=== PATIENT | female | born 1975 | race Caucasian/White ===

== ENCOUNTER 2019-03-18 13:34 | Emergency (ER) | payer OTHER ==
[~2019-03-18] VITALS: Ht 167.6 cm; Wt 90.7 kg
== END 2019-03-18 19:24 | disposition home or self-care (01) ==
LOC: ER 13:34
DX: D25.9 Leiomyoma of uterus, unspecified (principal)

== ENCOUNTER 2021-10-08 08:30 | Inpatient (IN) | payer OTHER ==
[~2021-10-08] VITALS: Ht 167.6 cm; Wt 93.0 kg
[2021-10-08] MEDS ORDERED: TOPROL XL50 M1 PO (09:35)
[2021-10-08] MEDS ORDERED: HYDRODIURIL12.5 MG PO (09:35)
[2021-10-08] MEDS ORDERED: BUSPAR PO (09:35)
[2021-10-14] MEDS ORDERED: BUSPIRONE HCL10 MG (10:01)
== END 2021-10-16 10:25 | disposition home or self-care (01) | DRG 743 ==
LOC: OB/GYN 10-14 08:30 → O/R 10-14 08:46 → OB/GYN 10-14 09:45
PROVIDERS: ADMIT Obstetrics & Gynecology; ATTEND Obstetrics & Gynecology
PROC: 0UT70ZZ Resection of Bilateral Fallopian Tubes, Open Approach (ICD-10-PCS; 2021-10-14)
PROC: 0UT20ZZ Resection of Bilateral Ovaries, Open Approach (ICD-10-PCS; 2021-10-14)
PROC: 0DNW0ZZ Release Peritoneum, Open Approach (ICD-10-PCS; 2021-10-14)
PROC: 0UT90ZL Resection of Uterus, Supracervical, Open Approach (ICD-10-PCS; principal; 2021-10-14 09:45)
DX: D25.1 Intramural leiomyoma of uterus (principal); D25.2 Subserosal leiomyoma of uterus; D25.0 Submucous leiomyoma of uterus; N80.2 Endometriosis of fallopian tube; N73.6 Female pelvic peritoneal adhesions (postinfective); Z20.822 Contact with and (suspected) exposure to COVID-19